=== PATIENT | male | born 1995 | race Caucasian/White ===

== ENCOUNTER → 2019-05-29 | Emergency (ER) | payer BC, MEDICAID ==
[~2019-05-29] VITALS: Ht 182.9 cm; Wt 73.9 kg
[~2019-05-29] MED LIST: ETOMIDATE (2MG/ML) 20ML VIAL IV ONE; HYDROmorphone HCL 2 MG/ML VL IV ONE; MORPHINE SULFATE 4 MG/ML SYR/VIAL IV ONE; ONDANSETRON HCL 4 MG/2 ML VIAL IV ONE
[2019-05-29 20:36] VITALS: BP 132/75
== END | disposition home or self-care (01) ==
LOC: MERGE 19:14 → ER 19:14
DX: S43.005A Unspecified dislocation of left shoulder joint, initial encounter (principal); V86.56XA Driver of dirt bike or motor/cross bike injured in nontraffic accident, initial encounter; Y93.89 Activity, other specified; Y99.8 Other external cause status; Y92.89 Other specified places as the place of occurrence of the external cause
CPT/HCPCS: 23650; 73020; 73030; 96374; 96375; 99152; 99285; J1170; J2270; J2405

== ENCOUNTER 2019-05-30 11:45 | Emergency (ER) | payer BC, MEDICAID ==
[~2019-05-30] VITALS: Ht 182.9 cm; Wt 73.9 kg
[2019-05-30] MEDS ORDERED: MORPHINE SULFATE 4 MG/ML SYR/VIAL IV ONE (12:45)
[2019-05-30] MEDS ORDERED: ONDANSETRON HCL 4 MG/2 ML VIAL IV ONE ×4 (12:45→17:00)
[2019-05-30] MEDS ORDERED: HYDROmorphone HCL 2 MG/ML VL IV ONE ×3 (13:45→17:00)
[2019-05-30 14:12] LABS: Basophils # (auto) 0 10 ^3/uL (0-0.2); Basophils % (auto) 0.3 % (0.0-2.0); Eosinophils # (auto) 0.1 10 ^3/uL (0-0.8); Eosinophils % (auto) 0.8 % (0.0-7.0); Hematocrit 39.5 % (41.0-53.0); Hemoglobin 13.3 g/dL (13.5-17.5); Lymphocytes # (auto) 1.9 10 ^3/uL (0.4-5.4); Lymphocytes % (auto) 25.2 % (10.0-50.0); Mean Corpuscular Hemoglobin 31.2 pg (28.0-32.0); Mean Corpuscular Hgb Conc. 33.6 g/dL (32.0-36.0); Mean Corpuscular Volume 92.8 fL (80.0-100.0); Monocytes # (auto) 0.7 10 ^3/uL (0-1.3); Monocytes % (auto) 8.7 % (0.0-12.0); Platelet Count (auto) 210 10^3/uL (140-450); Red Blood Cells 4.26 10^6/uL (4.5-5.90); Red Cell Distribution Width 13.5 % (11.8-14.3); White Blood Cell 7.7 10^3/uL (4.4-10.8)
[2019-05-30 14:29] LABS: INR 1.07 (0.9-1.15); Partial Thromboplastin Time 28.2 sec (23.64-32.05)
[2019-05-30 14:38] LABS: Calcium 8.4 mg/dL (8.5-10.1); Potassium 4.1 mmol/L (3.5-5.1)
[2019-05-30 14:44] LABS: Albumin 3.7 g/dL (3.4-5.0); BUN/Creatinine Ratio 7.1; Bilirubin, Total 0.7 mg/dL (0.2-1.0); Total Protein 6.6 g/dL (6.4-8.2)
[2019-05-30 16:48] VITALS: BP 128/55
== END 2019-05-30 17:04 | disposition short-term general hospital (02) ==
LOC: MERGE 11:45 → ER 11:45
DX: I82.622 Acute embolism and thrombosis of deep veins of left upper extremity (principal); M24.212 Disorder of ligament, left shoulder; V86.56XA Driver of dirt bike or motor/cross bike injured in nontraffic accident, initial encounter; Y93.89 Activity, other specified; Y99.8 Other external cause status; Y92.89 Other specified places as the place of occurrence of the external cause
CPT/HCPCS: 36415; 73221; 80053; 85025; 85610; 85730; 93971; 96374; 96375; 96376; 99285; J1170; J2270; J2405

== ENCOUNTER 2019-07-17 11:41 | Emergency (ER) | payer BC, MEDICAID ==
[~2019-07-17] VITALS: Ht 182.9 cm; Wt 65.8 kg
[2019-07-17] MEDS ORDERED: ONDANSETRON ODT 4 MG TAB PO ONE (13:15)
[2019-07-17] MEDS ORDERED: TETANUS-DIPTH-ACEL PERTUSSIS 0.5ML SYR Tdap IM ONE (13:15)
[2019-07-17] MEDS ORDERED: HYDROcodone-ACET 10/325MG TAB PO ONE (13:15)
[2019-07-17 14:22] VITALS: BP 112/61
== END 2019-07-17 14:27 | disposition home or self-care (01) ==
LOC: ER 11:41
DX: S50.811A Abrasion of right forearm, initial encounter (principal); S70.311A Abrasion, right thigh, initial encounter; V29.9XXA Motorcycle rider (driver) (passenger) injured in unspecified traffic accident, initial encounter; Y93.55 Activity, bike riding; Y92.89 Other specified places as the place of occurrence of the external cause; Y99.8 Other external cause status
CPT/HCPCS: 70450; 71250; 73090; 73110; 99285; Q0162

== ENCOUNTER 2022-06-25 07:13 | Emergency (ER) | payer BC, MEDICAID ==
[~2022-06-25] VITALS: Ht 182.9 cm; Wt 68.0 kg
[2022-06-25 07:51] VITALS: BP 162/91
[2022-06-25] MEDS ORDERED: HYDROcodone-ACET 10/325MG TAB PO ONE (08:45)
[2022-06-25] MEDS ORDERED: NEOMYCIN-POLYM-HC 1% OTIC(EAR) SOLN 10ML LEFT EAR ONE (08:45)
[2022-06-25] MEDS ORDERED: DexAMETHasone SOD PHOS 10MG/1ML VIAL INJ IM ONE (10:00)
[2022-06-25] MEDS ORDERED: KETOROLAC TROMETH 60MG/2ML VIAL IM ONE (10:00)
[2022-06-25] MEDS ORDERED: AMOX-277 PO ×3 (10:19→10:54)
[2022-06-25] MEDS ORDERED: IBUP800T26 PO ×3 (10:19→10:54)
[2022-06-25] MEDS ORDERED: HYDR-4798 PO ×3 (10:19→10:54)
[2022-06-25] MEDS ORDERED: COROSUS LEFT EAR ×3 (10:19→10:54)
[2022-06-25] MEDS ORDERED: LORA10CA7 PO ×3 (10:19→10:54)
== END 2022-06-25 10:54 | disposition home or self-care (01) ==
LOC: ER 07:13
DX: J06.9 Acute upper respiratory infection, unspecified (principal); H66.92 Otitis media, unspecified, left ear; B97.89 Other viral agents as the cause of diseases classified elsewhere; F17.210 Nicotine dependence, cigarettes, uncomplicated; F12.90 Cannabis use, unspecified, uncomplicated; F15.90 Other stimulant use, unspecified, uncomplicated; Z20.822 Contact with and (suspected) exposure to COVID-19
CPT/HCPCS: 36415; 71046; 87070; 87426; 87804; 87880; 96372; 99284; J1100; J1885